=== PATIENT | female | born 1965 | race Caucasian/White ===

== ENCOUNTER 2017-02-07 17:52 | Inpatient (IN) | payer OTHER ==
[~2017-02-07] VITALS: Ht 157.5 cm; Wt 89.0 kg
[~2017-02-07 17:52] MED LIST: CIPR-231 PO; ONDA4TAB12 PO; ONDA8TAB10 PO; OXYC5TAB72 PO; TAMS0.4C98 PO
[2017-02-07 17:55] VITALS: BP 147/87; PULSE 79; O2SAT 100
[2017-02-07 19:42] LABS: BASOPHILS % (AUTO) 0.2 % (0-3); Mean Corpuscular Volume 88.2 fL (81-100); NEUTROPHILS % (AUTO) 57.7 % (40-74); Platelet Count 236 bil/L (150-400)
--- NOTE | 2017-02-07 19:55 | ED.REPORT ---
HPI-General Illness Date of Service Feb 07, 2017 ED Provider: Rao Carbajal MD 51 y/o female with a hx of nephrolithiasis presents to the ED complaining of waxing and waning left flank pain that radiates to her left side of the abdomen , onset yesterday. She describes it as a tight pain and rates it 7/10 currently. Walking and rocking seems to help ease the pain. Associated sx include nausea, chills and diaphoresis. The pt denies hematuria, chest pain, shortness of breath and fever. The pt took Flomax last night which did not help. Nursing Notes Stated Complaint: POSS KIDNEY STONES,LEFT SIDE Chief Complaint: Female Abdominal Pain Nursing Notes Reviewed: Yes Allergies: Coded Allergies: tetracycline (Verified Allergy, Severe, RASH, 06/13/13) propoxyphene (Verified Adverse Reaction, Severe, N/V, 06/13/13) Scheduled Ciprofloxacin (Ciprofloxacin) 500 Mg Tablet 500 MG PO BID Tamsulosin (Flomax) 0.4 Mg Capsule 0.4 MG PO DAILY Scheduled PRN Hydrocodone-Acetaminophen 5-325 mg (Hydrocodone-Acetaminophen 5-325 mg) 1 Each Tablet 1-2 TABLET PO Q4H PRN PRN For Moderate Pain Ondansetron ODT (Ondansetron ODT) 4 Mg Tab.rapdis 4-8 MG PO Q6H PRN PRN For Nausea/Vomiting General Time Seen by MD: 19:28 Chief Complaint Other (left flank pain) Hx Obtained From: Patient Arrived By: Walk-in Sudden in Onset?: Yes Onset Occurred: Yesterday Symptom Duration: Waxes and wanes Location: : Back (left flank) Radiation: : Abdomen Severity: Current: Pain level 7 out of 10 Severity: Maximum: Pain level 10 out of 10 Recent Healthcare: No recent doctor visit Similar Sx Previous: Yes Past Medical History Past Medical History Recurrent kidney stones UTIs Past Surgical History LITHOTRIPSY, CYSTO/LT STENT Reports: Tonsillectomy Smoking History Never Smoker Social History Other Social History: Good social support, Ambulatory Status Independent Review of Systems Full Review of Systems Constitutional: Reports: Chills Respiratory: Denies: Shortness of breath Cardiovascular: Denies: Chest pain GI: Reports: Abdominal pain (left), Nausea Female: Reports: Flank pain (left), Denies: Hematuria Skin: Reports Diaphoresis Complete sys rev & neg: except as marked. Physical Exam Nursing note and vitals reviewed. Constitutional: Well-developed, well-nourished. Not diaphoretic. Head: Normocephalic and atraumatic. Mouth/Throat: Oropharynx is clear and moist. No oropharyngeal exudate. Eyes: EOM are normal. Pupils are equal, round, and reactive to light. Neck: Supple, no tracheal deviation. Cardiovascular: Normal rate,regular rhythm. Equal and intact distal pulses throughout. Pulmonary/Chest: Effort normal and breath sounds normal. No respiratory distress. Abdominal: Soft. No distension. Mild left lower quadrant tenderness. No rebound , or guarding. Bowel sounds present. Musculoskeletal: Range of motion grossly intact, moving all extremities. No edema or tenderness appreciated. Neurological: AOx3. Grossly nonfocal exam. Strength and sensation intact and equal to bilateral upper and lower extremities. Skin: Warm and dry, no rashes or pallor appreciated. Psychiatric: Appropriate mood and affect. Behavior appears normal. Back: Mild left CVA tenderness Vital Signs Vital Signs Date Time Temp Pulse Resp B/P Pulse Ox O2 Delivery O2 Flow Rate FiO2 02/07/17 23:27 36.5 70 18 124/68 99 Room Air 02/07/17 17:55 37.0 79 147/87 100 Room Air Interpretation & Diagnostics PROCEDURE: CT KUB ([id number]) IMPRESSION: Multiple bilateral central nonobstructing renal calculi. The largest is on the right and it is 12 mm in size. There are 2 others on the right than are up to 6 or 7 mm. There are several small 2 mm central stones.. In the left kidney there is moderate hydronephrosis and hydroureter down to the distal ureter just proximal to the bladder where there are 24 mm stones in tendon. More centrally in the left kidney there multiple small one or 2 mm nonobstructing stones. Dictated by: Willie Youssef M.D. on 02/07/2017 at 22:01 Approved by: Willie Youssef M.D. on 02/07/2017 at 22:22 Lab Results Interpretation Result Diagram: 02/07/17191902/07/171919 Test 02/07/17 19:20 02/07/17 20:05 White Blood Count 4.5th/mm3 (3.8-10.1) Red Blood Count 4.31mil/mm3 (3.90-5.20) Hemoglobin 12.5g/dL (12.0-15.6) Hematocrit 38.0% (35.0-46.0) Mean Corpuscular Volume 88.2fL (81-100) Mean Corpuscular Hemoglobin 29.0pg (27.0-35.0) Mean Corpuscular Hemoglobin Concent 32.9% (32.0-37.0) Red Cell Distribution Width 13.3% (12.3-15.4) Platelet Count 236bil/L (150-400) Neutrophils (%) (Auto) 57.7% (40-74) Lymphocytes (%) (Auto) 31.9% (14-46) Monocytes (%) (Auto) 8.0% (4-12) Eosinophils (%) (Auto) 2.0% (0-5) Basophils (%) (Auto) 0.2% (0-3) Sodium Level 135mEq/L (134-144) Potassium Level 4.6mEq/L (3.5-5.2) Chloride Level 99mEq/L (97-108) Carbon Dioxide Level 21mmol/L (18-29) Blood Urea Nitrogen 12mg/dL (6-24) Creatinine 0.84mg/dL (0.57-1.00) Estimat Glomerular Filtration Rate 102mL/min (>59) Glucose Level 110mg/dL (60-99) Calcium Level 8.9mg/dL (8.5-10.1) Magnesium Level 2.0mg/dL (1.6-2.6) Total Bilirubin 0.4mg/dL (0.0-1.2) Aspartate Amino Transf (AST/SGOT) 25U/L (0-50) Alanine Aminotransferase (ALT/SGPT) 25U/L (0-32) Alkaline Phosphatase 119U/L (25-150) Total Protein 7.2g/dL (6.4-8.4) Albumin 4.0g/dL (3.4-5.0) Lipase 46U/L (13-60) Hold Perez Top Tube Received (Received) Urine Color Yellow (YELLOW) Urine Appearance Hazy (CLEAR,HAZY) Urine pH 8.0 (5.0-8.0) Urine Specific [place] 1.015 (1.003-1.035) Urine Protein 100mg/dL (NEG,TRACE) Urine Glucose (UA) Negativemg/dL (NEGATIVE) Urine Ketones Negativemg/dL (NEGATIVE) Urine Occult Blood Large (NEGATIVE) Urine Nitrite Positive (NEGATIVE) Urine Bilirubin Negative (NEGATIVE) Urine Urobilinogen Normalmg/dL (NORMAL) Urine Leukocyte Esterase Small (NEGATIVE) Urine RBC >50/hpf (0-2) Urine WBC >50/hpf (0-5) Urine Epithelial Cells Few/hpf (NONE-MOD) Urine Crystals None seen (NONE SEEN) Urine Bacteria Moderate/hpf (NONE-FEW) Urine Hyaline Casts None/lpf (NONE) Urine Granular Casts None seen (NONE SEEN) Urine Waxy Casts None seen (NONE SEEN) Urine Red Blood Cell Casts None seen (NONE SEEN) Urine White Blood Cell Casts None seen (NONE SEEN) Urine Mucus None seen (None Seen) Urine Trichomonas None seen (NONE SEEN) Urine Yeast None (NONE SEEN) Urinalysis Comment None Urine Culture Reflexed Indicated Re-Eval/Medical Decision Med Decision/Clinical Course 51-year-old female with a history of kidney stones presenting to the ED for evaluation of left-sided flank pain consistent with previous renal colic. Hemodynamically stable here in the ED. Pain controlled with IV pain medicine and nausea with Zofran. Laboratory studies notable for a CBC and CMP grossly within normal limits, including a creatinine of 0.84. She does have what appears to be a significant urinary tract infection with greater than 50 white blood cells, greater than 50 red blood cells, positive nitrites, and positive leukocyte esterase. CT scan as per above, most notable for left-sided hydronephrosis and hydroureter were there are 2 x 4 mm stones present. I suspect that this is the most likely etiology for her pain at this time. Given the infection, obvious concern for an infected stone. Urology was consulted as per below. After discussion with the patient, decision made to admit the patient for IV antibiotics, pain control, and urology consultation the morning. Patient agreeable to plan as stated, no further questions. Time of Eval: 21:42 Re-Evaluation/Progress Note: Discussed lab results, diagnosis with the pt and plan to do a CT and contact the urologist depending on the result. The pt understands and agrees with the plan. All questions answered. Time of Eval: 23:22 Re-Evaluation/Progress Note: Discussed lab results, imaging results, diagnosis and Dr. Ivy's recommendation with the pt. She would like to be admitted. All questions answered. Consultation #1: Referral / Consult Name: Nilay Ivy MD Consulted With: Urology Call Returned at: 23:13 Political Scientist: Will see patient Note: Dr. Ivy recommends discharging the pt if vomiting resolves and if her pain is managed. Otherwise, she can be admited so he can see her tomorrow. Consultation #2: Referral / Consult Name: Ricarda Travis MD Consulted With: Hospitalist Call Returned at: 23:25 Political Scientist: Will see patient, Agrees with eval, Agrees with plan, Accepts admit Counseled Regarding: Diagnosis, Lab results, Need for admission Discharge & Departure Primary Impression: Kidney stone Additional Impression: Urinary tract infection Urinary tract infection type: site unspecified Hematuria presence: without hematuria Qualified Code: N39.0 - Urinary tract infection, site not specified Disposition: ADMITTED TO HOSPITAL Discharge Condition All VS Reviewed: Yes Referrals: Omar Mattson MD (PCP) Scribe Attestation Portions of this note were transcribed by Ankita Ramirez. Dr.sanderson Denae, personally performed the history, physical exam and medical decision-making;I reviewed and confirmed the accuracy of the information in the transcribed note. Signed by Addi Burleson. 02/07/17 23:29 copies to: Omar Mattson MD, William B MD Feb 07, 2017 19:55 Ankita Ramirez Feb 07, 2017 21:37 Portions of this note were transcribed by Ankita Ramirez. Dr.sanderson Denae, personally performed the history, physical exam and medical decision-making;I reviewed and confirmed the accuracy of the information in the transcribed note. Signed by Addi Burleson. 02/07/17 23:29 copies to: Omar Mattson MD, William B MD Feb 07, 2017 19:55 Ankita Ramirez Feb 07, 2017 21:37
[2017-02-07] MEDS ORDERED: Ondansetron 2 mg/mL 2 mL Inj IVPUSH ONE ×2 (21:05→23:40)
[2017-02-07] MEDS ORDERED: 0.9% Sodium Chloride 1,000 ML IV ONE (21:34)
[2017-02-07] MEDS ORDERED: HYDROmorphone 1 mg/mL Inj IVPUSH PRN (21:35)
[2017-02-07] MEDS ORDERED: Ketorolac 15 mg/mL Inj IVPUSH ONE (21:35)
[2017-02-07 22:20] LABS: APPEARANCE,URINE HAZY (CLEAR,HAZY); COLOR,URINE YELLOW (YELLOW); OCCULT BLOOD,URINE LARGE (NEGATIVE); UROBILINOGEN,URINE NORMAL (NORMAL)
--- NOTE | 2017-02-07 22:24 | DRSVH ---
PROCEDURE: CT KUB ([id number]-[id number]) INDICATIONS: known hx of kidney stones w/ similar today, UTI TECHNIQUE: Noncontrast 5 mm thick sections acquired from the diaphragms to the symphysis. 5 mm thick coronal an d sagittal reformats were then performed. For radiation dose reduction, the following was used: aut omated exposure control, adjustment of mA and/or kV according to patient size. COMPARISON: None. FINDINGS: Image quality: Excellent. Lung bases: Lung bases are clear. Heart size is normal. Urinary system: Both kidneys are normal in size. In the right kidney there are multiple central ston es are these do not obstruct the largest is 12 mm in size in the renal pelvis and one of the potentia l for obstructing. No stones are seen in the right ureter or bladder. The left kidney multiple scatte red small 2 mm calcifications centrally. There is hydronephrosis and hydroureter on the left. The hyd roureter extends down to 2 adjacent stones of approximately 4 mm each just proximal to the bladder. T here is mild left perinephric stranding.. Other solid organs: Liver and spleen are normal in size. Gallbladder is within normal limits. Panc reas is normal in contours. No adrenal nodules. Peritoneum and bowel: Unenhanced bowel loops demonstrate normal wall thickness and caliber. No free fluid or air. Nodes and vessels: No retroperitoneal or mesenteric adenopathy by size criteria. Aorta and inferior vena cava are normal in caliber. Abdominal wall: There is a small fatty umbilical hernia. Pelvis: No free pelvic fluid. No inguinal hernias or adenopathy. Bones: No suspicious bony lesions. No vertebral body compression fractures. IMPRESSION: Multiple bilateral central nonobstructing renal calculi. The largest is on the right and it is 12 mm in size. There are 2 others on the right than are up to 6 or 7 mm. There are several small 2 mm central stones.. In the left kidney there is moderate hydronephrosis and hydroureter down to the distal ureter just p roximal to the bladder where there are 24 mm stones in tendon. More centrally in the left kidney ther e multiple small one or 2 mm nonobstructing stones. Dictated by: Willie Youssef M.D. on 02/07/2017 at 22:01 Approved by: Willie Youssef M.D. on 02/07/2017 at 22:22
[2017-02-07 23:27] VITALS: BP 124/68; PULSE 70; RESP 18; O2SAT 99
[2017-02-07] MEDS ORDERED: HYDROmorphone 1 mg/mL Inj IVPUSH ONE (23:30)
[2017-02-07] MEDS ORDERED: Ondansetron 2 mg/mL 2 mL Inj IVPUSH PRN (23:30)
[2017-02-07] MEDS ORDERED: levoFLOXacin Inj 500 MG in IV Premix 1 EACH IV ONE (23:45)
[2017-02-08 00:09] VITALS: BP 124/68; PULSE 70; RESP 18; O2SAT 99
[2017-02-08] MEDS ORDERED: 0.9% Sodium Chloride 1,000 ML IV SCH (01:46)
[2017-02-08] MEDS ORDERED: Polyethylene Glycol (PEG) 17 Gm Powder PO PRN (01:50)
[2017-02-08] MEDS ORDERED: Alum-Mag Hydrox-Simeth 30 mL Suspension PO PRN (01:50)
[2017-02-08] MEDS ORDERED: Ondansetron 2 mg/mL 2 mL Inj IVPUSH PRN (01:50)
[2017-02-08] MEDS ORDERED: HYDROcodone-APAP 5-325 mg Tablet PO PRN (01:50)
--- NOTE | 2017-02-08 01:58 | PCM.HPMED ---
Subjective Date of Service Feb 08, 2017 Primary Provider: Admitting Physician: Ricarda Travis MD Primary Care Physician: Omar Mattson MD Attending Physician: Ricarda Travis MD Admit Status: From the Emergency Department, Full Admit, Non-Telemetry Chief Complaint: Left flank pain with nausea History of Present Illness: Subjective 51-year-old female with a history of nephrolithiasis who presents with 2 day history of left flank pain with some nausea. Patient also does admit to some chills and diaphoresis. She does have a history of his calcium oxalate stones in the past and her usual urologist is Dr. Sidhu. Her evaluation in the emergency room include white count of 4.5 BUN 12 creatinine 0.84 urine shows large occult blood nitrite positive small leukocyte esterase and RBCs greater than 50 wbc's greater than 50 CT KUB reveals multiple bilateral central nonobstructing renal calculi. Largest on the right as 12 mm in size. There are 2 others on the right that are up to 6 or 7 cm. There are several small 2 mm central stones. In the left kidney there is moderate hydronephrosis and hydroureter down to the distal ureter just proximal to the bladder with there are to 4 mm stones in tandem. More centrally in the left kidney due to multiple small 1 or [address] Ivy urology was contacted by ER physician and will see the patient in the a.m. Review of Systems: Other review of systems are reviewed and are negative except as noted in history of present illness. Allergies Coded Allergies: tetracycline (Verified Allergy, Severe, RASH, 06/13/13) propoxyphene (Verified Adverse Reaction, Severe, N/V, 06/13/13) Home Medications Scheduled Ciprofloxacin (Cipro) 500 Mg Tablet 500 MG PO BID Tamsulosin (Flomax) 0.4 Mg Capsule 0.4 MG PO DAILY Scheduled PRN Ondansetron ODT (Ondansetron ODT) 4 Mg Tab.rapdis 4 MG PO Q8 PRN PRN For Nausea/ Vomiting Ondansetron ODT (Ondansetron ODT) 8 Mg Tab.rapdis 8 MG PO Q4H PRN PRN For Nausea oxyCODONE (oxyCODONE) 5 Mg Tablet 5 MG PO Q4H PRN PRN For Pain If needed for more severe pain, you can take ONE tab of this oxycodoen with your 1-2 tabs of oxycodone/APAP 5/325. oxyCODONE-Expunged, Do Not Renew! (oxyCODONE-Expunged, Do Not Renew!) 5 Mg Tablet 5 MG PO Q4-6H PRN PRN PMH Past Medical History Past Medical History Recurrent kidney stones UTIs Past Surgical History LITHOTRIPSY, CYSTO/LT STENT Social History Hx Alcohol Use: No Hx Substance Use: No Hx Tobacco Use: No Smoking Status: Never Smoker Living Arrangement: with Family Exam Vital Signs Vital Sign - Last Date Time Temp Pulse Resp B/P Pulse Ox O2 Delivery O2 Flow Rate FiO2 02/08/17 00:09 36.5 70 18 124/68 99 Room Air Intake and Output 02/07/17 02/07/17 02/08/17 Cumulative From/Thru 15:00 23:00 07:00 02/07/17 17:55 - 02/08/17 01:28 Intake Total 999 ml 999 ml Balance 999 ml 999 ml Intake IV Total 999 ml 999 ml Exam Constitutional: Middle-aged female in no acute distress Head: Normocephalic/atraumatic Eyes: PERRLA DC EOMI Mouth: No lesions Neck: No adenopathy Chest: Clear to auscultation Cor: Regular rate and rhythm S1-S2 without murmur Abdomen: Soft nontender bowel sounds present Extremities: No pedal edema Skin: No rashes Neuro: Alert and oriented 3, motor strength is intact bilaterally Psych: Mood and affect appropriate Lab and Diagnostics Labs Laboratory Tests 72 Hours Test 02/07/17 19:20 02/07/17 20:05 White Blood Count 4.5th/mm3 (3.8-10.1) Red Blood Count 4.31mil/mm3 (3.90-5.20) Hemoglobin 12.5g/dL (12.0-15.6) Hematocrit 38.0% (35.0-46.0) Mean Corpuscular Volume 88.2fL (81-100) Mean Corpuscular Hemoglobin 29.0pg (27.0-35.0) Mean Corpuscular Hemoglobin Concent 32.9% (32.0-37.0) Red Cell Distribution Width 13.3% (12.3-15.4) Platelet Count 236bil/L (150-400) Neutrophils (%) (Auto) 57.7% (40-74) Lymphocytes (%) (Auto) 31.9% (14-46) Monocytes (%) (Auto) 8.0% (4-12) Eosinophils (%) (Auto) 2.0% (0-5) Basophils (%) (Auto) 0.2% (0-3) Sodium Level 135mEq/L (134-144) Potassium Level 4.6mEq/L (3.5-5.2) Chloride Level 99mEq/L (97-108) Carbon Dioxide Level 21mmol/L (18-29) Blood Urea Nitrogen 12mg/dL (6-24) Creatinine 0.84mg/dL (0.57-1.00) Estimat Glomerular Filtration Rate 102mL/min (>59) Glucose Level 110mg/dL (60-99) Calcium Level 8.9mg/dL (8.5-10.1) Magnesium Level 2.0mg/dL (1.6-2.6) Total Bilirubin 0.4mg/dL (0.0-1.2) Aspartate Amino Transf (AST/SGOT) 25U/L (0-50) Alanine Aminotransferase (ALT/SGPT) 25U/L (0-32) Alkaline Phosphatase 119U/L (25-150) Total Protein 7.2g/dL (6.4-8.4) Albumin 4.0g/dL (3.4-5.0) Lipase 46U/L (13-60) Hold Perez Top Tube Received (Received) Urine Color Yellow (YELLOW) Urine Appearance Hazy (CLEAR,HAZY) Urine pH 8.0 (5.0-8.0) Urine Specific [place] 1.015 (1.003-1.035) Urine Protein 100mg/dL (NEG,TRACE) Urine Glucose (UA) Negativemg/dL (NEGATIVE) Urine Ketones Negativemg/dL (NEGATIVE) Urine Occult Blood Large (NEGATIVE) Urine Nitrite Positive (NEGATIVE) Urine Bilirubin Negative (NEGATIVE) Urine Urobilinogen Normalmg/dL (NORMAL) Urine Leukocyte Esterase Small (NEGATIVE) Urine RBC >50/hpf (0-2) Urine WBC >50/hpf (0-5) Urine Epithelial Cells Few/hpf (NONE-MOD) Urine Crystals None seen (NONE SEEN) Urine Bacteria Moderate/hpf (NONE-FEW) Urine Hyaline Casts None/lpf (NONE) Urine Granular Casts None seen (NONE SEEN) Urine Waxy Casts None seen (NONE SEEN) Urine Red Blood Cell Casts None seen (NONE SEEN) Urine White Blood Cell Casts None seen (NONE SEEN) Urine Mucus None seen (None Seen) Urine Trichomonas None seen (NONE SEEN) Urine Yeast None (NONE SEEN) Urinalysis Comment None Urine Culture Reflexed Indicated Result Diagram: 02/07/17191902/07/171919 Assessment & Plan #Nonobstructing left ureteral calculi with moderate hydronephrosis and hydroureter and urinary tract infection, acute, present on admission -Urology to see in a.m. -IV Levaquin every 24 hours -Flomax by mouth daily -Strain all urine -Opiates when necessary pain -Await urine culture and sensitivities #DVT prophylaxis -Subcutaneous prophylactic Lovenox #CODE STATUS -Patient is full code Pain Evaluation: Adequate Pain Control VTE Prophylaxis: Sub-Q Enoxaparin, SCDs Resuscitation Status: CPR: Attempt Resuscitation Time spent 60 minutes Ricarda Travis MD Feb 08, 2017 01:58
[2017-02-08 05:15] VITALS: BP 107/64; PULSE 78; RESP 16; O2SAT 95
[2017-02-08] MEDS ORDERED: Promethazine Inj 12.5 MG in Dextrose 5% 50 ML IV PRN (05:50)
--- NOTE | 2017-02-08 06:14 | NUR ---
[place] [facility] [place] from [place] at 0019, pt arrived to floor at 0030 per chani accompanied by ED RN, pt able to ambulate to bed, pt a/o able to make needs known, IVF patent, oriented to room and call light system, independent in room, urine strained throughout night, noted white sediments/flakes, call light in reach at all times.
[2017-02-08 11:30] VITALS: BP 105/67; PULSE 82; RESP 16; O2SAT 97
--- NOTE | 2017-02-08 11:41 | NUR ---
Social Work: Initial Assessment/Multidisciplinary Rounds D: Per EMR review, pt is a 51 year old female admitted for Infected Kidney Injury. Pt is [facility]; pt has no LTC insurance or VA benefits. NOK is Omar Jordan, spouse, . PCP is Omar Mattson MD. Advanced directive info provided to pt. Readmit score not entered at this time. Pt discussed in am rounds. Pt awaiting consult from urology. Dr. Ivy will see pt this morning per ED notes. Pt screened in for CM assessment due to multiple providers involved in care. [employer] met with the patient while ambulating bedolla. Pt agreeable to assessment. Pt provided with sw contact information, discharge planning checklist left at bedside. Sw role explained. Pt lives in [place] with her family. Pt is I at baseline, ambulating the halls with [employer] without issue. No DME use, HH or SNF history. Pt has no concerns about idshcarge once medically stable; spouse to xport. A: Pt who is I at baseline. P: Anticipate pt to discharge home via POV and no sw needs; [employer] to continue to follow to assess for needs. ESTHER Cavazos Addendum: 02/08/17 at 1148 by MAIA BARRAGAN Amended: Links added.
--- NOTE | 2017-02-08 12:14 | NUR ---
Pain/Nausea Pt has not c/o any pain or nausea today. Dose of morphine and phenergen at 0500 this am, but nothing since and no further complaints. Pt has been up ambulating frequently and is feeling well. Awaiting recommendation by urology before pt can d/c.
[2017-02-08] MEDS ORDERED: ONDA4TAB12 PO (13:16)
[2017-02-08] MEDS ORDERED: CIPR-198 PO (13:16)
[2017-02-08] MEDS ORDERED: HYDR-4003 PO (13:16)
[2017-02-08] MEDS ORDERED: TAMS0.4C98 PO (13:16)
--- NOTE | 2017-02-08 13:21 | PCM.DIMED ---
Discharge Instructions Date of Service Feb 08, 2017 Dates of Hospitalization Feb 08, 2017 at 00:04 Discharge Diagnosis Discharge Diagnosis # Acute left ureteral calculi with moderate hydronephrosis and hydroureter, present on admission # Acute urinary tract infection (UTI), present on admission Diet Discharge Diet: No restrictions Activity Discharge Activity: No restrictions Call your provider Call your provider for: Fever or Chills, Shortness of breath, Bleeding, Vomitting, Excessive diarrhea Patient Instructions Patient Instructions Strain all urine Seek immediate medical attention if any new or worsening signs or symptoms occur. Follow-up plan 1. Followup with urology (may follow with Dr. Ivy or other urologist of your choice) this coming week. Call on Thursday to setup appointment [address] [id number] 2. Followup with primary care provider in 1-2 weeks. Follow-up Provider: Nilay Ivy MD Provider: Omar Mattson MD, Masoud Feb 08, 2017 13:21
--- NOTE | 2017-02-08 15:07 | PCM.DC.MED ---
Discharge Summary Date of Service Feb 08, 2017 Dates of Hospitalization Date of Hospital Admission Feb 08, 2017 at 00:04 Date of Discharge: Feb 08, 2017 Providers: Admitting Physician: Ricarda Travis MD Primary Care Physician: Omar Mattson MD Attending Physician: Emile Lemons Diagnosis at Time of Discharge Diagnosis at Time of Discharge # Acute left ureteral calculi with moderate hydronephrosis and hydroureter, present on admission # Acute urinary tract infection (UTI), present on admission Consultations 1. Urology (Dr. Ivy) Procedures XRay, CTs & MRIs Date of Service: 02/07/172133 PROCEDURE: CT KUB ([id number]) IMPRESSION: Multiple bilateral central nonobstructing renal calculi. The largest is on the right and it is 12 mm in size. There are 2 others on the right than are up to 6 or 7 mm. There are several small 2 mm central stones.. In the left kidney there is moderate hydronephrosis and hydroureter down to the distal ureter just proximal to the bladder where there are 24 mm stones in tendon. More centrally in the left kidney there multiple small one or 2 mm nonobstructing stones. Dictated by: Willie Youssef M.D. on 02/07/2017 at 22:01 Approved by: Willie Youssef M.D. on 02/07/2017 at 22:22 Brief History As noted in H&P by Dr. Travis: Subjective 51-year-old female with a history of nephrolithiasis who presents with 2 day history of left flank pain with some nausea. Patient also does admit to some chills and diaphoresis. She does have a history of his calcium oxalate stones in the past and her usual urologist is Dr. Sidhu. Her evaluation in the emergency room include white count of 4.5 BUN 12 creatinine 0.84 urine shows large occult blood nitrite positive small leukocyte esterase and RBCs greater than 50 wbc's greater than 50 CT KUB reveals multiple bilateral central nonobstructing renal calculi. Largest on the right as 12 mm in size. There are 2 others on the right that are up to 6 or 7 cm. There are several small 2 mm central stones. In the left kidney there is moderate hydronephrosis and hydroureter down to the distal ureter just proximal to the bladder with there are to 4 mm stones in tandem. More centrally in the left kidney due to multiple small 1 or [address] Ivy urology was contacted by ER physician and will see the patient in the a.m. Hospital Course # Acute ureteral calculi with moderate left hydronephrosis and hydroureter and urinary tract infection, present on admission -Received a call from urology consult (Dr. Ivy) on am of 02/08 who recommends patient be discharged home with 2 weeks of PO Cipro, one month of Flomax and prescription for pain meds. He graciously agrees to setup the patient for followup at urology clinic later this coming week. -IV Levaquin every 24 hours during this hospital -Flomax by mouth daily -Strain all urine -Opiates when necessary pain -Pt reports almost complete resolution of her pain and discomfort and eager to go home Exam Vital Signs (Last) Date Time Temp Pulse Resp B/P Pulse Ox O2 Delivery O2 Flow Rate FiO2 02/08/17 11:30 36.6 82 16 105/67 97 Room Air Test 02/07/17 19:20 02/07/17 20:05 White Blood Count 4.5th/mm3 (3.8-10.1) Red Blood Count 4.31mil/mm3 (3.90-5.20) Hemoglobin 12.5g/dL (12.0-15.6) Hematocrit 38.0% (35.0-46.0) Mean Corpuscular Volume 88.2fL (81-100) Mean Corpuscular Hemoglobin 29.0pg (27.0-35.0) Mean Corpuscular Hemoglobin Concent 32.9% (32.0-37.0) Red Cell Distribution Width 13.3% (12.3-15.4) Platelet Count 236bil/L (150-400) Neutrophils (%) (Auto) 57.7% (40-74) Lymphocytes (%) (Auto) 31.9% (14-46) Monocytes (%) (Auto) 8.0% (4-12) Eosinophils (%) (Auto) 2.0% (0-5) Basophils (%) (Auto) 0.2% (0-3) Sodium Level 135mEq/L (134-144) Potassium Level 4.6mEq/L (3.5-5.2) Chloride Level 99mEq/L (97-108) Carbon Dioxide Level 21mmol/L (18-29) Blood Urea Nitrogen 12mg/dL (6-24) Creatinine 0.84mg/dL (0.57-1.00) Estimat Glomerular Filtration Rate 102mL/min (>59) Glucose Level 110mg/dL (60-99) Calcium Level 8.9mg/dL (8.5-10.1) Magnesium Level 2.0mg/dL (1.6-2.6) Total Bilirubin 0.4mg/dL (0.0-1.2) Aspartate Amino Transf (AST/SGOT) 25U/L (0-50) Alanine Aminotransferase (ALT/SGPT) 25U/L (0-32) Alkaline Phosphatase 119U/L (25-150) Total Protein 7.2g/dL (6.4-8.4) Albumin 4.0g/dL (3.4-5.0) Lipase 46U/L (13-60) Hold Perez Top Tube Received (Received) Urine Color Yellow (YELLOW) Urine Appearance Hazy (CLEAR,HAZY) Urine pH 8.0 (5.0-8.0) Urine Specific [place] 1.015 (1.003-1.035) Urine Protein 100mg/dL (NEG,TRACE) Urine Glucose (UA) Negativemg/dL (NEGATIVE) Urine Ketones Negativemg/dL (NEGATIVE) Urine Occult Blood Large (NEGATIVE) Urine Nitrite Positive (NEGATIVE) Urine Bilirubin Negative (NEGATIVE) Urine Urobilinogen Normalmg/dL (NORMAL) Urine Leukocyte Esterase Small (NEGATIVE) Urine RBC >50/hpf (0-2) Urine WBC >50/hpf (0-5) Urine Epithelial Cells Few/hpf (NONE-MOD) Urine Crystals None seen (NONE SEEN) Urine Bacteria Moderate/hpf (NONE-FEW) Urine Hyaline Casts None/lpf (NONE) Urine Granular Casts None seen (NONE SEEN) Urine Waxy Casts None seen (NONE SEEN) Urine Red Blood Cell Casts None seen (NONE SEEN) Urine White Blood Cell Casts None seen (NONE SEEN) Urine Mucus None seen (None Seen) Urine Trichomonas None seen (NONE SEEN) Urine Yeast None (NONE SEEN) Urinalysis Comment None Urine Culture Reflexed Indicated Discharge Medications Discharge Medications Ciprofloxacin (Ciprofloxacin) 500 Mg Tablet 500 MG PO BID Prescribed by: EMILE LEMONS MD Tamsulosin (Flomax) 0.4 Mg Capsule 0.4 MG PO DAILY Prescribed by: EMILE LEMONS MD As needed Hydrocodone-Acetaminophen 5-325 mg (Hydrocodone-Acetaminophen 5-325 mg) 1 Each Tablet 1-2 TABLET PO Q4H PRN PRN For Moderate Pain Prescribed by: EMILE LEMONS MD Ondansetron ODT (Ondansetron ODT) 4 Mg Tab.rapdis 4-8 MG PO Q6H PRN PRN For Nausea/Vomiting Prescribed by: EMILE LEMONS MD Followup Plan Disposition: Home Follow-up plan 1. Followup with urology (may follow with Dr. Ivy or other urologist of your choice) this coming week. Call on Thursday to setup appointment [address] [id number] 2. Followup with primary care provider in 1-2 weeks. Discharge Diet: No restrictions Discharge Activity: No restrictions Patient Instructions Strain all urine Seek immediate medical attention if any new or worsening signs or symptoms occur. Follow-up Provider: Nilay Ivy MD Provider: Omar Mattson MD Time spent 30 min copies to: Nilay Ivy MD; Omar Mattson MD, Masoud Feb 08, 2017 15:07
--- NOTE | 2017-02-08 16:08 | NUR ---
Discharge Pt d/c at 1505 w/ family. Time taken to go over d/c instruction and plan. Teaching reinforced regarding abx tx. Pt had no further questions and felt very comfortable about d/c plan and will f/u with urology. It was an absolute pleasure to have her as a patient here.
[2017-02-08] MEDS ORDERED: levoFLOXacin Inj 500 MG in IV Premix 1 EACH IV SCH (23:00)
== END 2017-02-08 15:05 | disposition home or self-care (01) | DRG 690 ==
LOC: SED 17:52 → MOC 02-08 00:04
PROVIDERS: ADMIT Specialist; ATTEND Specialist
DX: N13.6 Pyonephrosis (principal); B96.20 Unspecified Escherichia coli [E. coli] as the cause of diseases classified elsewhere; N20.0 Calculus of kidney